=== PATIENT | female | born 1975 ===

== ENCOUNTER 2018-02-18 13:04 | Emergency (ER) | payer BC, MEDICAID ==
[~2018-02-18] VITALS: Ht 162.6 cm; Wt 72.7 kg
[~2018-02-18 13:04] MED LIST: FURO-93; LORA-445
[2018-02-18 14:18] LABS: BASOPHILS # (AUTO) 0.03 x10^3/uL (0-0.1); BASOPHILS % (AUTO) 1 % (0-1); EOSINOPHILS # (AUTO) 0.06 x10^3/uL (0-0.4); EOSINOPHILS % (AUTO) 1 % (1-7); LYMPHOCYTES # (AUTO) 1.15 x10^3/uL (1-3.4); LYMPHOCYTES % (AUTO) 26 % (22-44); MD NO; MEAN CORPUSCULAR HEMOGLOBIN 31.3 pg (27.0-34.8); MEAN CORPUSCULAR HGB CONC 34.5 g/dL (32.4-35.8); MEAN CORPUSCULAR VOLUME 90.9 fL (80-100); MEAN PLATELET VOLUME 8.4 fL (7.4-10.4); MONOCYTES # (AUTO) 0.24 x10^3/uL (0.2-0.8); MONOCYTES % (AUTO) 5 % (2-9); NEUTROPHILS # (AUTO) 2.91 x10^3/uL (1.8-6.8); NEUTROPHILS % (AUTO) 66 % (42-75); PLATELET COUNT 127 x10^3/uL (130-400); RED BLOOD COUNT 3.83 x10^6/uL (3.82-5.3); RED CELL DISTRIBUTION WIDTH 13.2 % (9.6-15.2)
[2018-02-18 14:31] LABS: ALANINE AMINOTRANSFERASE 35 U/L (12-78); ALBUMIN 1.6 g/dL (3.4-5.0); ANION GAP 9 mmol/L (5-15); CALCIUM 7.8 mg/dL (8.5-10.1); CHLORIDE 108 mmol/L (98-107); CREATININE 1.44 mg/dL (0.55-1.02)
[2018-02-18 14:33] LABS: ALKALINE PHOSPHATASE 157 U/L (45-117); BILIRUBIN,TOTAL 0.7 mg/dL (0.2-1.0)
[2018-02-18 14:53] LABS: INTERNATIONAL NORMALIZED RATIO 1.04 (0.93-1.1); PROTHROMBIN TIME 10.7 Seconds (9.6-11.5)
[2018-02-18 14:59] LABS: MICROSCOPIC INDICATED
[2018-02-18 15:00] LABS: CULTURE INDICATED? YES
[2018-02-18 15:25] VITALS: BP 141/110
== END 2018-02-18 15:56 | disposition home or self-care (01) ==
LOC: ED 15:50
DX: K29.20 Alcoholic gastritis without bleeding (principal); N30.90 Cystitis, unspecified without hematuria
CPT/HCPCS: 36415; 74022; 80053; 81001; 83690; 84703; 85025; 85610; 85730; 87086; 87147; 99285